=== PATIENT | female | born 1945 | race Hispanic/Latino ===

== ENCOUNTER → 2019-10-06 | Day surgery (SDC) | payer MEDICARE ==
[~2019-10-06] MED LIST: CRESTOR10 MG PO; FENTANYL CITRATE/PF 100MCG/2 ML INJ ONE; IBANDRONATE SO150 MG PO; LISINOPRIL2.5 MG PO; MIDAZOLAM HCL 2 MG/2 ML VIAL ONE; OR PHACO EYE KIT ONE; PREOP PHACO EYE KIT ONE; TYLENOL ARTHRITIS PO; VIT D PO
--- OUTSIDE RECORDS SUMMARY | 2019-10-06 11:51 | XMS REPORT ---
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 Allergies, Adverse Reactions, Alerts This patient has no known allergies or adverse reactions. Medications This patient has no known medications. Encounters Start Date/Time End Date/Time Encounter Type Admission Type Attending Clinicians Care Facility Care Department Encounter ID 2019-05-27 05:18:00 2019-05-27 05:18:00 [facility] [id number]
[2019-10-06 15:45] VITALS: BP 127/76
== END | disposition home or self-care (01) ==
LOC: OR 11:49
PROVIDERS: ATTEND Ophthalmology
DX: H25.11 Age-related nuclear cataract, right eye (principal); I10 Essential (primary) hypertension; M81.0 Age-related osteoporosis without current pathological fracture; E78.5 Hyperlipidemia, unspecified
CPT/HCPCS: 66984; J2250; J3010; V2788

== ENCOUNTER → 2019-10-20 | Day surgery (SDC) | payer MEDICARE ==
[2019-10-20 13:10] VITALS: BP 120/61
== END | disposition home or self-care (01) ==
LOC: OR 12:09
PROVIDERS: ATTEND Ophthalmology
DX: H25.12 Age-related nuclear cataract, left eye (principal); I10 Essential (primary) hypertension; E78.5 Hyperlipidemia, unspecified; M81.0 Age-related osteoporosis without current pathological fracture; M19.90 Unspecified osteoarthritis, unspecified site; I83.90 Asymptomatic varicose veins of unspecified lower extremity
CPT/HCPCS: 66984; J2250; J3010; V2788

== ENCOUNTER → 2025-07-29 | Outpatient (REF) | payer OTHER ==
[~2025-07-29] MED LIST changes: -FENTANYL CITRATE/PF 100MCG/2 ML INJ ONE; +IOPAMIDOL 370 MG/ML 100 ML INFUS..BTL INJ ONE; +METOPROLOL TARTRATE INJ 1 MG/ML VIAL ONE; -MIDAZOLAM HCL 2 MG/2 ML VIAL ONE; +NITROGLYCERIN 0.4 MG SUBL ONE; -OR PHACO EYE KIT ONE; -PREOP PHACO EYE KIT ONE; +SODIUM CHLORIDE 0.9% 100 ML ONE
[2025-07-29 08:43] LABS: EST GLOMERULAR FILTRATION RATE 50.0 ML/MIN (>=60)
== END ==
LOC: CT 07:35
PROVIDERS: ATTEND Internal Medicine Cardiovascular Disease
DX: R94.39 Abnormal result of other cardiovascular function study (principal)
CPT/HCPCS: 36415; 75574; 75580; 82565; 84520; J7050; Q9967